=== PATIENT | male | born 2000 | race Caucasian/White ===

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

== ENCOUNTER 2019-08-14 17:47 | Emergency (ER) | payer BC ==
--- NOTE | 2019-08-14 18:17 | PDOC ---
Rapid Medical Evaluation Chief Complaint: Injury Time Seen by Provider: 08/14/19 18:15 Medical Evaluation: Allergies Allergy/AdvReac Type Severity Reaction Status Date / Time No Known Allergies Allergy Unverified 02/21/18 12:34 08/14/19 18:16 I have performed a brief in-person evaluation of this patient. The patient presents with a chief complaint of:puncture wound to thenar eminence of R hand while using knife at home today Pertinent physical exam findings:through and through laceration on exam, exam limited 2/2 pain I have ordered the following:XR, tetanus UTD The patient will proceed to the ED for further evaluation. Discharge Disposition - Diagnosis Hand laceration Qualifiers: Encounter type: initial encounter Foreign body presence: without foreign body Laterality: right Qualified Code(s): S61.411A - Laceration without foreign body of right hand, initial encounter - Referrals - Patient Instructions - Post Discharge Activity
[2019-08-14 18:22] VITALS: TEMP 97.9; BMI 23.7
[2019-08-14] MEDS ORDERED: morphine CARPU-JECT 4 MG/1 ML DISP.SYRIN IVPUSH ONE ×3 (19:30→21:28)
[2019-08-14] MEDS ORDERED: TETANUS AND DIPHTHERIA TOXOID 0.5 ML DISP.SYRIN IM ONE (19:31)
[2019-08-14] MEDS ORDERED: DIPHTH,PERTUSS(ACELL),TET 0.5 ML DISP.SYRIN IM ONE (19:36)
[2019-08-14] MEDS ORDERED: morphine SULFATE 4 MG/ML VIAL ONE ×2 (19:36→20:23)
[2019-08-14] MEDS ORDERED: SODIUM CHLORIDE 1,000 ML IV STA (19:47)
[2019-08-14] MEDS ORDERED: CEFAZOLIN 1 GM/D5W 1 GM/50 ML BAG IVPB ONE (19:47)
--- NOTE | 2019-08-14 19:51 | PDOC ---
History of Present Illness - General Chief Complaint: Injury Stated Complaint: RT HAND LACERATION Time Seen by Provider: 08/14/19 18:15 History Source: Patient Exam Limitations: No Limitations - History of Present Illness Initial Comments: 08/14/19 19:50 19y M with no significant PMH presenting to ED with laceration to the R hand. Pt states he was taking a sticker off a toolbox with a brand new knife when the knife slipped and stabbed him in the R hand. He saw the tip go through the other end. Pt states he has intense pain and does not want to move his fingers due to pain. Last tetanus shot was 1.5y ago. Past History - Past Medical History Allergies/Adverse Reactions: Allergies Allergy/AdvReac Type Severity Reaction Status Date / Time No Known Allergies Allergy Unverified 08/14/19 22:53 Home Medications: Ambulatory Orders Amox-Tr/K Cl [Augmentin - 875Mg Tablet] 1 tab PO BID #14 tablet 08/14/19 Ibuprofen 600 mg PO TID #21 tablet 08/14/19 COPD: No Thyroid Disease: No - Immunization History Immunization Up to Date: Yes - Psycho Social/Smoking Cessation Hx Smoking History: Never smoked Have you smoked in the past 12 months: No Information on smoking cessation initiated: No Hx Alcohol Use: No Drug/Substance Use Hx: No Substance Use Type: None Review of Systems - Review of Systems Musculoskeletal: Yes: See HPI Integumentary: Yes: See HPI Neurological: No: Numbness *Physical Exam - Vital Signs Last Vital Signs Temp Pulse Resp BP Pulse Ox 97.9 F 85 16 108/65 100 08/14/19 18:15 08/14/19 18:15 08/14/19 18:15 08/14/19 18:15 08/14/19 18:15 - Physical Exam General Appearance: Yes: Nourished, Appropriately Dressed, Mild Distress HEENT: positive: EOMIMADONNA Comments:: 08/15/19 08:01 radial pulses 2+ Musculoskeletal: positive: Other (3cm laceration to lateral aspect of R thumb and 1cm laceration at dorsal aspect of R hand near 2nd metacarpal. significant pain. ROM limited 2/2 pain. oozing blood. ) Integumentary: positive: Normal Color, Dry, Warm, Other (hands with dirt. ) Neurologic: positive: weight calculator II-XII NML intact, Fully Oriented, Alert, Normal Mood/ Affect, Normal Response, Motor Strength 5/5 Procedures - Laceration/Wound Repair Right Dorsal Hand 1st digit Wound Length: to 2.5 cm Wound Explored: clean, no foreign body present Wound's Depth, Shape: into muscle Irrigated w/ Saline: Yes Betadine Prep: No Anesthesia: 2% Lidocaine Wound Repaired With: Sutures Suture Size/Type: 4:0 Number of Sutures: 6 ED Treatment Course - Medications Given in the ED: ED Medications Discontinued Medications Generic Name Dose Route Start Last Admin Trade Name Sandee PRN Reason Stop Dose Admin Morphine Sulfate 4 mg 08/14/19 19:30 08/14/19 19:48 Morphine Injection - IVPUSH 08/14/19 19:31 4 mg ONCE ONE Administration Medical Decision Making - Medical Decision Making 08/14/19 19:52 19y M presenting with linear laceration on lateral side of R thumb around 3cm with 1cm puncture wound on dorsal aspect of hand near thumb. not moving hand due to pain. tetanus utd. hands are dirty. no arterial bleed, oozing blood. is able to move other digits. 1st digit rom limited to pain. will give 4mg iv morphine and reassess for movement. xr ordered by rme: no FB, no fractures. will cover with ancef given potential contamination. 08/14/19 20:58 still in pain, given 4 more of morphine. pain controlled. can extend thumb but still in pain. will discuss case with hand at [facility] hand. per hand, can repair large laceration, leave top open. irrigate and antibiotics. laceration reparied, see repair note. toradol given for pain control given augmentin and ibuprofen. will advise pt to return to ed in 1-2 days for wound check. DC home. 08/15/19 08:03 Discharge - Discharge Information Problems reviewed: Yes Clinical Impression/Diagnosis: Hand laceration Qualifiers: Encounter type: initial encounter Foreign body presence: without foreign body Laterality: right Qualified Code(s): S61.411A - Laceration without foreign body of right hand, initial encounter Condition: Improved Disposition: HOME - Admission No - Additional Discharge Information Prescriptions: Amox-Tr/K Cl [Augmentin - 875Mg Tablet] 1 tab PO BID #14 tablet Ibuprofen 600 mg PO TID #21 tablet - Follow up/Referral Referrals: Virgilio Davidson RES [Primary Care Provider] - - Patient Discharge Instructions Patient Printed Discharge Instructions: DI for Laceration Repair Additional Instructions: The laceration was repaired with 6 sutures. Please come back either tomorrow or on Saturday for wound check. A prescription for an antibiotic and pain medication was sent to the pharmacy, take as directed. It is normal for swelling and pain to increase over the next two days. Keep the area clean and dry, use only mild soap and warm water to clean. You will have a scar. Come back to the emergency room if you are unable to move your hand despite pain control, notice oozing, if it appears infected, the swelling doubles, the skin looks red or if any new or concerning symptom develops. Thank you - Post Discharge Activity Work/Back to School Note: Back to Work
[2019-08-14] MEDS ORDERED: CEFAZOLIN 1 GM/D5W 1 GM/50 ML BAG ONE (20:07)
--- NOTE | 2019-08-14 21:02 | PDOC ---
Documentation entered by Jaden Quinteros SCRIBE, acting as scribe for Heidi Balderrama MD. Heidi Balderrama MD: This documentation has been prepared by the Neli oswald Nirvannie, SCRIBE, under my direction and personally reviewed by me in its entirety. I confirm that the documentation accurately reflects all work, treatment, procedures, and medical decision making performed by me. Attending Attestation - Resident Resident Name: MonicaNatividad - ED Attending Attestation I have performed the following: I have examined & evaluated the patient, The case was reviewed & discussed with the resident, I agree w/resident's findings & plan, Exceptions are as noted - HPI HPI: 08/14/19 20:10 The patient is a 19 year old male, with no significant past medical history, who presents to the emergency department with a right hand laceration. As per patient, he was using a new sharp knife to take a sticker off his toolbox at which time it slipped subsequently going through his hand. Patient notes he was able to see the point of the on the other side of his hand at the time of the accident. He endorses significant pain with decreased range of motion of the fingers secondary to pain. His last tetanus shot was approximately a year and half ago. He denies any trauma to the right forearm, left extremity, or head/neck. He denies any syncope. Allergies: NKDA Primary Care Physician: Dr. Virgilio Davidson - Physicial Exam PE: GENERAL: Awake, alert, and fully oriented, in obvious discomfort HEAD: No signs of trauma EXTREMITIES: L hand with through and through laceration to the base of the thumb , exit wound at 2nd metacarpal. No active bleeding. +Pain on movement of the thumb. Ligaments and tendon function intact. No expanding hematoma. Remainder of extremities with normal range of motion, no edema. No clubbing or cyanosis. No cords, erythema, or tenderness NEUROLOGICAL: Cranial nerves II through XII grossly intact. Normal speech, normal gait. Motor and sensation intact SKIN: Warm, dry, normal turgor, no rashes or lesions noted. - Medical Decision Making Pt with through and through laceration to the L hand. With pain control, patient was able to fully range the thumb. No signs of expanding hematoma.
[2019-08-14] MEDS ORDERED: MORPHINE SULFATE 2 MG/ML VIAL ONE (21:54)
[2019-08-14] MEDS ORDERED: LIDOCAINE HCL 2% (50ML VIAL) SQ ONE (22:22)
[2019-08-14] MEDS ORDERED: LIDOCAINE HCL 2% (20ML MULTI-DOSE VIAL) ONE (22:23)
[2019-08-14] MEDS ORDERED: KETOROLAC TROMETHAMINE 15 MG/ML VIAL IVPUSH ONE (23:01)
[2019-08-14] MEDS ORDERED: KETOROLAC TROMETHAMINE 15 MG/ML VIAL ONE (23:05)
[2019-08-14 23:30] VITALS: BP 123/74; PULSE 74
== END 2019-08-14 23:30 | disposition home or self-care (01) ==
LOC: JER 17:47
PROC: 0HQFXZZ Repair Right Hand Skin, External Approach (ICD-10-PCS; principal; 2019-08-14)
PROC: 3E033NZ Introduction of Analgesics, Hypnotics, Sedatives into Peripheral Vein, Percutaneous Approach (ICD-10-PCS; 2019-08-14)
PROC: 3E0333Z Introduction of Anti-inflammatory into Peripheral Vein, Percutaneous Approach (ICD-10-PCS; 2019-08-14)
PROC: 3E0337Z Introduction of Electrolytic and Water Balance Substance into Peripheral Vein, Percutaneous Approach (ICD-10-PCS; 2019-08-14)
DX: S61.011A Laceration without foreign body of right thumb without damage to nail, initial encounter (principal); W26.0XXA Contact with knife, initial encounter; Y93.89 Activity, other specified; Y92.89 Other specified places as the place of occurrence of the external cause
CPT/HCPCS: 73130-TC-RT-FY; 99282-25; J7030

== ENCOUNTER 2019-08-15 16:21 | Emergency (ER) | payer BC ==
[2019-08-15 16:29] VITALS: BP 145/96; PULSE 92; TEMP 98.4; BMI 34.2
--- NOTE | 2019-08-15 18:37 | PDOC ---
Suture Removal/Wound Check HPI - History of Present Illness Chief Complaint: Revisit,Wound Recheck Stated Complaint: EVALUATION Time Seen by Provider: 08/15/19 17:57 History Source: Yes: Patient Exam Limitations: Yes: No Limitations Treated at: [facility] ED - Previous ED Treatment Type of procedure performed on last visit: Yes: Laceration Repair Tetanus Immunization: Yes: Up to Date Antibiotics Prescribed: Yes (not picked up at time of visit) Past History - Travel Traveled outside of the country in the last 30 days: No Close contact w/someone who was outside of country & ill: No - Past Medical History Allergies/Adverse Reactions: Allergies Allergy/AdvReac Type Severity Reaction Status Date / Time No Known Allergies Allergy Unverified 08/14/19 22:53 Home Medications: Ambulatory Orders Amox-Tr/K Cl [Augmentin - 875Mg Tablet] 1 tab PO BID #14 tablet 08/14/19 Ibuprofen 600 mg PO TID #21 tablet 08/14/19 COPD: No Thyroid Disease: No - Immunization History Immunization Up to Date: Yes - Psycho Social/Smoking Cessation Hx Smoking History: Current every day smoker Have you smoked in the past 12 months: No Information on smoking cessation initiated: No Hx Alcohol Use: No Drug/Substance Use Hx: No Substance Use Type: None Suture Removal/Wound Check PE - Physical Exam Laceration/Wound Check Symptoms: reports: Improved, Other Comment (swelling present over the thenar eminence. Soft, able to move the thumb in all directions) Current Severity Level: Mild Location of Laceration/Wound: right: Hand (simple interrupted sutures in place in the thenar eminence.) *Review of Systems - Review of Systems Constitutional: No: Chills, Fever, Weakness Integumentary: Yes: Other (laceration). No: Erythema, Rash *Physical Exam - Vital Signs Last Vital Signs Temp Pulse Resp BP Pulse Ox 98.4 F 92 H 19 145/96 98 08/15/19 16:24 08/15/19 16:24 08/15/19 16:24 08/15/19 16:24 08/15/19 16:24 - Physical Exam General Appearance: Yes: Nourished, Appropriately Dressed. No: Apparent Distress Medical Decision Making - Medical Decision Making 08/15/19 18:34 Patient is 19-year-old male who presents the ER for a wound check to his right hand after having a through and through laceration repaired yesterday in the ER. He has not yet picked up his antibiotics. A/P: Wound check On exam simple interrupted sutures are present in the right thenar eminence. Wound is well approximated, no secondary signs of infection. Wound on the dorsal aspect of the right hand is open, again shows no evidence of infection. Patient is moving his finger in all directions. Thenar eminence is soft. 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 Discharge home with hand follow-up I discussed the physical exam findings, ancillary test results and final diagnoses with the patient. I answered all of the patient's questions. The patient was satisfied with the care received and felt comfortable with the discharge plan and treatment plan. The Patient agrees to follow up with the primary care physician/specialist within 24-72 hours. Return precautions were given. Discharge - Discharge Information Problems reviewed: Yes Clinical Impression/Diagnosis: Visit for wound check Condition: Stable Disposition: HOME - Admission No - Follow up/Referral Referrals: Virgilio Davidson MD [Primary Care Provider] - Avery Martin MD [Staff Physician] - Michael Pacheco MD [Staff Physician] - - Patient Discharge Instructions Patient Printed Discharge Instructions: How to Care for a Surgical Wound- Stitches Additional Instructions: Your wound is healing well. Please keep it clean and dry. Change the dressing every day. Please take the antibiotics as directed. Pick them up as soon as you leave. Please follow-up with a hand specialist within a week. A referral has been provided for you. You can also return to the ER in 7 days to have the stitches removed. Return to the ER sooner if you are unable to move your thumb, if the swelling in the thumb increases, if you have fevers, purulent drainage from the site or if you have any changes in your symptoms. - Post Discharge Activity Work/Back to School Note: Back to Work
== END 2019-08-15 18:40 | disposition home or self-care (01) ==
LOC: JERFT 16:21
DX: Z48.01 Encounter for change or removal of surgical wound dressing (principal)
CPT/HCPCS: 99281-25

== ENCOUNTER 2020-04-16 00:51 | Emergency (ER) | payer BC, OTHER ==
[2020-04-16 00:58] VITALS: BP 0/0; BMI 30.3
--- OUTSIDE RECORDS SUMMARY | 2020-04-16 01:09 | XMS ---
:2000 Author Organization [facility] Care Team Providers Name Role Phone DUKE Foreman Unavailable Unavailable Rosemarin Unavailable Unavailable Rosemarin Unavailable Unavailable Rosemarin Unavailable Unavailable Rosemarin Unavailable Unavailable Rosemarin Unavailable Unavailable Rosemarin Unavailable Unavailable Rosemarin Unavailable Unavailable Rosemarin Unavailable Unavailable Rosemarin Unavailable Unavailable Rosemarin Unavailable Unavailable Rosemarin Unavailable Unavailable Rosemarin Unavailable Unavailable Re-disclosure Warning The records that you are about to access may contain information from federally- assisted alcohol or drug abuse programs. If such information is present, then the following federally mandated warning applies: This information has been disclosed to you from records protected by federal confidentiality rules (42 CFR part 2). The federal rules prohibit you from making any further disclosure of this information unless further disclosure is expressly permitted by the written consent of the person to whom it pertains or as otherwise permitted by 42 CFR part 2. A general authorization for the release of medical or other information is NOT sufficient for this purpose. The Federal rules restrict any use of the information to criminally investigate or prosecute any alcohol or drug abuse patient.The records that you are about to access may contain highly sensitive health information, the redisclosure of which is protected by Article 27-F of the [facility] Public Health law. If you continue you may haveaccess to information: Regarding HIV / AIDS; Provided by facilities licensed or operated by the [facility] Office of Mental Health; or Provided by the [facility] Office for People With Developmental Disabilities. If such information is present, then the following [facility] mandated warning applies: This information has been disclosed to you from confidential records which are protected by state law. State law prohibits you from making any further disclosure of this information without the specific written consent of the person to whom it pertains, or as otherwise permitted by law. Any unauthorized further disclosure in violation of state law may result in a fine or residential sentence or both. A general authorization for the release of medical or other information is NOT sufficient authorization for further disclosure. 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 Status Observation Data S ource(s) Description Advance No completed [facility] Advance No completed [facility] Allergies and Adverse Reactions Type Description Substance Reaction Status Data Source(s ) Miscellaneous allergy latex latex URTICARIA/HIVES [facility] Family History Family Member Family Member Family Member Date of Description Data Source(s) Name Gender Status Status Unknown Unknown Problem MEDENT (Digestive Disease [facility] Nutrition [facility] ) Encounters Encounter Providers Location Date Indications Data Source(s ) Emergency Attender: Lydia 08/13/2019 [facility] [place] [facility] [place] 11:[place]:00 [place] [facility] EST - 08/13/2019 02:11:00 PM EST [place] Patient discharged. Outpatient Attender: Alistair Digestive Disease 07/03/2018 MED ENT (Dig[facility] 01:00:00 PM EST [facility]) Medications Medication Brand Start Product Dose Route Administrative Pharmacy [facility] Indications Reaction Description Data Name Date Form Instructions Instructions Source(s) 200 ACTUAT [place] 08/13/ AEROSOL, 2 ORAL active [facility] Albuterol rol 2019 SPRAY [place] 0.09 Sulfat 01:55: Hospital MG/ACTUAT e Hfa 00 PM Metered 90MCG/ EST Dose Inh* Inhaler [ProAir] Albuterol Sulfate Hfa 90MCG/Inh* Prednisone Predni 05/25/ TABLET 20 mg ORAL active [facility] 20 MG Oral sone 2017 [place] Tablet 04:44: Hospital 00 PM EST Prednisone Predni 05/25/ TABLET 20 mg complet Noelle y [facility] 20 MG Oral sone 2016 ed [place] Tablet (Predn 12:00: Hospital Prednisone isone 00 AM (Prednisone Tablet EST Tablet*) 20 *) 20 Mg Tab Mg Tab Prednisone Predni 05/17/ TABLET 60 mg ORAL complet [facility] 50 MG Oral sone 2013 ed [place] Tablet 10:05: Hospital 00 PM EST Prednisone Predni 05/17/ TABLET 60 mg complet Noelle y [facility] 50 MG Oral sone 2013 ed [place] Tablet (Predn 12:00: Hospital Prednisone isone 00 AM (Prednisone Tablet EST Tablet*) 50 *) 50 Mg Tablet, Mg 60 Mg Oral Tablet , 60 Mg Oral Ondansetron 05/25/ TABLET 4 mg ORAL complet W shyann Hcl 2012 ed [place] 11:12: Hospital 00 PM EST Ondansetron 05/25/ TABLET 4 mg complet Every 8 [facility] Hcl (Ricardo 2012 ed [facility] Odt 12:00: needed for Hospita l Tablet*) 4 00 AM For Nausea Mg Tab, 4 EST Mg Oral Amoxicillin Amoxic TABLET 1 ORAL active Wh ite 250 MG / illin/ {Caps [place] Clavulanate Clavul ule} Hospit al 125 MG Oral anate Tablet Potass Amoxicillin ium /Clavulanat e Potassium Amoxicillin Amoxic TABLET 1 complet Twice A Day [facility] 250 MG / illin/ {Caps ed [place] Clavulanate Clavul ule} Hospit al 125 MG Oral anate Tablet Potass Amoxicillin ium /Clavulanat (Augme e Potassium ntin (Augmentin Tablet Tablets*) s*) 250 Mg-125 250 Mg Tablet Mg-125 Mg Tablet None Ea, 1 UNSPECIF 1 complet Once Wh ite Ea IED {Each ed [place] } Hospital None UNSPECIF 1 complet White IED {Each ed [place] } Hospital Insurance Providers Payer name Policy type / Policy ID Covered Covered republican's Policy Plan Coverage type republican ID relationship to [place] Information p[place]le PPO [id number] FA [id number] BLUE CROSS [id number] FA [id number] PPO SELF PAY SP INSURANCE [place] AdorStyle [id number] Self [id number] Plan [place] Commercial [id number] Self [id number] Plan Problems, Conditions, and Diagnoses Code Display Name Description Problem Type Effective Dates Data Source(s) R07.89 Other chest pain R07.89 Diagnosis 08/13/[address] [facility] 01:20:00 PM EST Hospital Surgeries/Procedures Procedure Description Date Indications Data Source(s) Diagnostic radiography 08/13/2019 [place] of chest, combined 12:00:00 AM Hospital posteroanterior and EST lateral (procedure) X-ray of abdomen, supine X-ray of abdomen, 06/17/2018 [place] and upright views supine and upright 12:00:00 AM Hosp ital views EST X-ray of chest, PA and X-ray of chest, PA 06/17/2018 [place] lateral views and lateral views 12:00:00 AM Hospital EST Results ID Date Data Source [id number] 06/17/2018 01:13:00 AM [facility] Name Value Range Interpretation Code Description Data Stefanie rce(s) Supporting Document(s ) Lipase 35 U/L 12-53 LIPASE [place] [Enzymatic Hospital activity/vo lume] in Serum or Plasma ID Date Data Source [id number] 06/17/2018 01:13:00 AM [facility] Value Range Interpretation Description Data Sup porting Code Source(s) Document(s ) Aspartate 21 U/L 10-48 AST [facility] aminotransferase [place] [Enzymatic Hospital activity/volume] in Serum or Plasma ID Date Data Source [id number] 06/17/2018 01:13:00 AM [facility] Value Range Interpretation Description Data Sup porting Code Source(s) Document(s ) Alanine 29 U/L 10-40 ALANINE [facility] aminotransferase TRANSFERASE [place] [Enzymatic Hospital activity/volume] in Serum or Plasma ID Date Data Source [id number] 06/17/2018 01:13:00 AM [facility] Name Value Range Interpretation Description Data Sup porting Code Source(s) Document(s ) Alkaline 87 U/L 41-147 ALKALINE [facility] phosphatase PHOSPHATASE Hospital [Enzymatic activity/volum e] in Serum or Plasma ID Date Data Source [id number] 06/17/2018 01:13:00 AM [facility] Name Value Range Interpretation Description Data Sup porting Code Source(s) Document(s ) Bilirubin. 0.4 mg/dL 0.3-1.2 TOTAL [facility] total BILIRUBIN Hospital [Mass/volu me] in Serum or Plasma ID Date Data Source [id number] 06/17/2018 01:13:00 AM [facility] Name Value Range Interpretation Description Data Sup porting Code Source(s) Document(s ) Albumin/Gl 1.5 1.0-2.1 ALBUMIN/GLOBULI [facility] obulin N RATIO Hospital [Mass Ratio] in Serum or Plasma ID Date Data Source [id number] 06/17/2018 01:13:00 AM [facility] Value Range Interpretation Description Data Sup porting Code Source(s) Document(s ) Albumin 4.4 g/dL 3.4-4.8 ALBUMIN [facility] [Mass/volum Hospital e] in Serum or Plasma ID Date Data Source [id number] 06/17/2018 01:13:00 AM [facility] Value Range Interpretation Description Data Sup porting Code Source(s) Document(s ) Protein 7.3 g/dL 5.7-8.2 TOTAL PROTEIN [facility] [Mass/volum Hospital e] in Serum or Plasma ID Date Data Source [id number] 06/17/2018 01:13:00 AM [facility] Name Value Range Interpretation Description Data Sup porting Code Source(s) Document(s ) Calcium 9.3 mg/dL 8.3-10.6 CALCIUM [facility] [Mass/volum Hospital e] in Serum or Plasma ID Date Data Source [id number] 06/17/2018 01:13:00 AM EST [facility] Name Value Range Interpretation Description Data Sup porting Code Source(s) Document(s ) Urea 15.1 6.0-20.0 BUN/CREATININE [facility] nitrogen/C RATIO Hospital reatinine [Mass Ratio] in Serum or Plasma ID Date Data Source [id number] 06/17/2018 01:13:00 AM [facility] Name Value Range Interpretation Description Data Sup porting Code Source(s) Document(s ) Creatinine 0.9 0.9-1.3 CREATININE [facility] [Mass/volume] mg/dL Hospital in Serum or Plasma ID Date Data Source [id number] 06/17/2018 01:13:00 AM [facility] Name Value Range Interpretation Description Data Sup porting Code Source(s) Document(s ) Urea 13 mg/dL 6-20 BLOOD UREA [facility] nitrogen NITROGEN Hospital [Mass/volume ] in Serum or Plasma ID Date Data Source [id number] 06/17/2018 01:13:00 AM [facility] Value Range Interpretation Code Description Data Stefanie rce(s) Supporting Document(s ) Anion gap in 12 6-18 ANION GAP [facility] Serum or [facility] Plasma ID Date Data Source [id number] 06/17/2018 01:13:00 AM [facility] Value Range Interpretation Description Data Sup porting Code Source(s) Document(s ) Carbon 24 mmol/L 23-29 CARBON DIOXIDE [facility] dioxide, Hospital total [Moles/vol ume] in Serum or Plasma ID Date Data Source [id number] 06/17/2018 01:13:00 AM [facility] Name Value Range Interpretation Description Data Sup porting Code Source(s) Document(s ) Chloride 104 98-107 CHLORIDE [facility] [Moles/volum mmol/L Hospital e] in Serum or Plasma ID Date Data Source [id number] 06/17/2018 01:13:00 AM [facility] Name Value Range Interpretation Description Data Sup porting Code Source(s) Document(s ) Potassium 3.6 3.8-5.1 Below low normal POTASSIUM [facility] [Moles/volume mmol/L Hospital ] in Serum or Plasma ID Date Data Source [id number] 06/17/2018 01:13:00 AM [facility] Name Value Range Interpretation Description Data Sup porting Code Source(s) Document(s ) Sodium 137 136-145 SODIUM [facility] [Moles/vol mmol/L Hospital ume] in Serum or Plasma ID Date Data Source [id number] 06/17/2018 01:13:00 AM [facility] Name Value Range Interpretation Description Data Sup porting Code Source(s) Document(s ) Glucose 95 mg/dL 74-106 GLUCOSE [facility] [Mass/volum Hospital e] in Serum or Plasma ID Date Data Source [id number] 06/17/2018 01:13:00 AM [facility] Name Value Range Interpretation Description Data Sup porting Code Source(s) Document(s ) Leukocyte NEGATIVE NEG URINE [facility] esterase LEUKOCYTES Hospital [Presence] in Urine by Test strip ID Date Data Source [id number] 06/17/2018 01:13:00 AM [facility] Value Range Interpretation Description Data Sup porting Code Source(s) Document(s ) Nitrite NEGATIVE NEG URINE NITRITES [facility] [Presence] Hospital in Urine by Test strip ID Date Data Source [id number] 06/17/2018 01:13:00 AM [facility] Value Range Interpretation Description Data Sup porting Code Source(s) Document(s ) Erythrocytes NEGATIVE NEG URINE BLOOD [facility] [#/volume] in Hospital Urine by Test strip ID Date Data Source [id number] 06/17/2018 01:13:00 AM [facility] Value Range Interpretation Description Data Sup porting Code Source(s) Document(s ) Bilirubin NEGATIVE NEG URINE BILIRUBIN [facility] .total Hospital [Presence ] in Urine by Test strip ID Date Data Source [id number] 06/17/2018 01:13:00 AM [facility] Value Range Interpretation Description Data Sup porting Code Source(s) Document(s ) Urobilinogen 0.2 0.2-1.0 URINE [facility] [Units/volume] mg/dL UROBILINOGEN [place] in Urine by Hospital Test strip ID Date Data Source [id number] 06/17/2018 01:13:00 AM [facility] Value Range Interpretation Description Data Sup porting Code Source(s) Document(s ) Ketones NEGATIVE NEG URINE KETONES [facility] [Mass/volum Hospital e] in Urine by Test strip ID Date Data Source [id number] 06/17/2018 01:13:00 AM [facility] Value Range Interpretation Description Data Sup porting Code Source(s) Document(s ) Glucose NEGATIVE NEG URINE GLUCOSE [facility] [Mass/volum Hospital e] in Urine by Test strip ID Date Data Source [id number] 06/17/2018 01:13:00 AM [facility] Value Range Interpretation Description Data Sup porting Code Source(s) Document(s ) Protein NEGATIVE NEG URINE PROTEIN [facility] [Presence] Hospital in Urine by Test strip ID Date Data Source [id number] 06/17/2018 01:13:00 AM [facility] Value Range Interpretation Code Description Data Stefanie rce(s) Supporting Document(s ) pH of 6.5 5.0-8.0 URINE PH [facility] Urine by Hospital Test strip ID Date Data Source [id number] 06/17/2018 01:13:00 AM [facility] Value Range Interpretation Description Data Sup porting Code Source(s) Document(s ) Specific 1.009 1.003-1.0 URINE SPECIFIC [facility] gravity of 35 GRAVITY Hospital Urine by Test strip ID Date Data Source [id number] 06/17/2018 01:13:00 AM [facility] Value Range Interpretation Description Data Sup porting Code Source(s) Document(s ) Clarity in Urine CLEAR URINE CLARITY [facility] by Refractometry Hospital automated ID Date Data Source [id number] 06/17/2018 01:13:00 AM [facility] Value Range Interpretation Code Description Data Stefanie rce(s) Supporting Document(s ) Color of YELLOW URINE COLOR [facility] Urine Hospital ID Date Data Source [id number] 06/17/2018 01:13:00 AM [facility] Value Range Interpretation Code Description Data Stefanie rce(s) Supporting Document(s ) 0.0 % 0-0.2 NUCLEATED RBCS [facility] (AUTO DIFF%)DIS Hospital ID Date Data Source [id number] 06/17/2018 01:13:00 AM [facility] Value Range Interpretation Description Data Sup porting Code Source(s) Document(s ) Differential AUTOMATED DIFF TYPE [facility] cell count Hospital method - Blood ID Date Data Source [id number] 06/17/2018 01:13:00 AM [facility] Value Range Interpretation Code Description Data Stefanie rce(s) Supporting Document(s ) 0.02 0-0.3 IMM GRANS (AUTO [facility] 10*3/uL DIFF#) Hospital ID Date Data Source [id number] 06/17/2018 01:13:00 AM [facility] Value Range Interpretation Description Data Sup porting Code Source(s) Document(s ) Basophils 0.04 0.0-0.1 BASOPHILS [facility] [#/volume] 10*3/uL (AUTO DIFF #) Hospital in Blood by Automated count ID Date Data Source [id number] 06/17/2018 01:13:00 AM [facility] Value Range Interpretation Description Data Sup porting Code Source(s) Document(s ) Eosinophils 0.06 0.0-0.6 EOSINOPHILS [facility] [#/volume] in 10*3/uL (AUTO DIFF #) [place] Blood by Hospital Automated count ID Date Data Source [id number] 06/17/2018 01:13:00 AM [facility] Value Range Interpretation Description Data Sup porting Code Source(s) Document(s ) Monocytes 0.58 0.0-1.2 MONOCYTES [facility] [#/volume] 10*3/uL (AUTO DIFF #) Hospital in Blood by Automated count ID Date Data Source [id number] 06/17/2018 01:13:00 AM [facility] Value Range Interpretation Description Data Sup porting Code Source(s) Document(s ) Lymphocytes 3.16 1.2-3.5 LYMPHOCYTES [facility] [#/volume] in 10*3/uL (AUTO DIFF #) [place] Blood by [facility] Automated count ID Date Data Source [id number] 06/17/2018 01:13:00 AM [facility] Value Range Interpretation Description Data Sup porting Code Source(s) Document(s ) Neutrophils 3.55 1.5-6.6 NEUTROPHILS [facility] [#/volume] in 10*3/uL (AUTO DIFF #) [place] Blood by [facility] Automated count ID Date Data Source [id number] 06/17/2018 01:13:00 AM [facility] Value Range Interpretation Description Data Sup porting Code Source(s) Document(s ) Nucleated 0.0 % 0-0.2 NUCLEATED RBCS [facility] erythrocytes/1 (AUTO DIFF%) Hospital 00 leukocytes [Ratio] in Blood by Automated count ID Date Data Source [id number] 06/17/2018 01:13:00 AM [facility] Name Value Range Interpretation Description Data Sup porting Code Source(s) Document(s ) Immature 0.3 % 0-0.5 IMM GRANS (AUTO [facility] granulocytes/1 DIFF%) Hospital 00 leukocytes in Blood by Automated count ID Date Data Source [id number] 06/17/2018 01:13:00 AM [facility] Name Value Range Interpretation Description Data Sup porting Code Source(s) Document(s ) Basophils/100 0.5 % 0-1.0 BASOPHILS (AUTO [place] leukocytes in DIFF %) [facility] Blood by Automated count ID Date Data Source [id number] 06/17/2018 01:13:00 AM [facility] Value Range Interpretation Description Data Sup porting Code Source(s) Document(s ) Eosinophils/10 0.8 % 0-6.0 EOSINOPHILS [facility] 0 leukocytes (AUTO DIFF %) Hospital in Blood by Automated count ID Date Data Source [id number] 06/17/2018 01:13:00 AM [facility] Value Range Interpretation Description Data Sup porting Code Source(s) Document(s ) Monocytes/100 7.8 % 4.0-12.0 MONOCYTES [facility] leukocytes in (AUTO DIFF %) [facility] Blood by Automated count ID Date Data Source [id number] 06/17/2018 01:13:00 AM [facility] Name Value Range Interpretation Description Data Sup porting Code Source(s) Document(s ) Lymphocytes/1 42.6 % 20.0-48. LYMPHOCYTES [facility] 00 leukocytes 0 (AUTO DIFF %) Hospital in Blood by Automated count ID Date Data Source [id number] 06/17/2018 01:13:00 AM [facility] Name Value Range Interpretation Description Data Sup porting Code Source(s) Document(s ) Neutrophils/1 48.0 % 40.0-75. NEUTROPHILS [facility] 00 leukocytes 0 (AUTO DIFF %) Hospital in Blood by Automated count ID Date Data Source [id number] 06/17/2018 01:13:00 AM [facility] Value Range Interpretation Description Data Sup porting Code Source(s) Document(s ) Platelet mean 8.6 fL 9.6-12.8 Below low normal MEAN PLATELET [facility] volume VOLUME Hospital [Entitic volume] in Blood by Automated count ID Date Data Source [id number] 06/17/2018 01:13:00 AM [facility] Value Range Interpretation Description Data Sup porting Code Source(s) Document(s ) Platelets 260 150-400 PLATELET COUNT [facility] [#/volume] 10*3/uL Hospital in Blood by Automated count ID Date Data Source [id number] 06/17/2018 01:13:00 AM [facility] Value Range Interpretation Description Data Sup porting Code Source(s) Document(s ) Erythrocyte 12.1 % 11.5-14. RED CELL [facility] distribution 5 DISTRIBUTION [place] width [Ratio] WIDTH Hospital by Automated count ID Date Data Source [id number] 06/17/2018 01:13:00 AM [facility] Value Range Interpretation Description Data Sup porting Code Source(s) Document(s ) Erythrocyte mean 36.2 31.0-36. Above high MEAN [facility] corpuscular g/dL 0 normal CORPUSCULAR [place] hemoglobin HGB CONCEN Hospital concentration [Mass/volume] by Automated count ID Date Data Source [id number] 06/17/2018 01:13:00 AM [facility] Value Range Interpretation Description Data Sup porting Code Source(s) Document(s ) Erythrocyte 29.3 pg 27.0-34. MEAN [facility] mean 0 CORPUSCULAR [place] corpuscular HEMOGLOBIN Hospital hemoglobin [Entitic mass] by Automated count ID Date Data Source [id number] 06/17/2018 01:13:00 AM [facility] Value Range Interpretation Description Data Sup porting Code Source(s) Document(s ) Erythrocyte 80.9 fL 80.0-96. MEAN [facility] mean 0 CORPUSCULAR [place] corpuscular VOLUME Hospital volume [Entitic volume] by Automated count ID Date Data Source [id number] 06/17/2018 01:13:00 AM [facility] Value Range Interpretation Description Data Sup porting Code Source(s) Document(s ) Hematocrit 46.1 % 42.0-50.0 HEMATOCRIT [facility] [Volume Hospital Fraction] of Blood by Automated count ID Date Data Source [id number] 06/17/2018 01:13:00 AM [facility] Value Range Interpretation Description Data Sup porting Code Source(s) Document(s ) Hemoglobin 16.7 13.6-17. HEMOGLOBIN [facility] [Mass/volume] g/dL 0 Hospital in Blood ID Date Data Source [id number] 06/17/2018 01:13:00 AM [facility] Value Range Interpretation Description Data Sup porting Code Source(s) Document(s ) Erythrocytes 5.70 4.50-5.9 RED BLOOD [facility] [#/volume] in 10*6/uL 0 CELL COUNT [place] Blood by Hospital Automated count ID Date Data Source [id number] 06/17/2018 01:13:00 AM [facility] Value Range Interpretation Description Data Sup porting Code Source(s) Document(s ) Leukocytes 7.4 4.0-10.0 WHITE BLOOD [facility] [#/volume] in 10*3/uL CELL COUNT [facility] Blood by Automated count Procedure Social History Code Duration Value Status Description Data Source(s ) Smoking Unknown if ever completed Unknown if ever [facility] [place] smoked smoked Hospital Denies Tobacco completed Denies Tobacco Use [facility] ([facility]) ETOH Use Denies alcohol completed Denies alcohol use [facility] ([facility]) Smoking Never smoked completed Never smoked tobacco [facility] [place] tobacco (finding) (finding) [facility] Vital Signs ID Date Data Source UNK Name Value Range Interpretation Code Description Data Source(s) Respiratory rate 13 /min 13 /min [facility] ([facility]) Heart rate 71 /min 71 /min [facility] ([facility]) Diastolic blood 70 mm[Hg] 70 mm[Hg] [facility] pressure ([facility]) Systolic blood 120 mm[Hg] 120 mm[Hg] [facility] pressure ([facility]) Body mass index 29.6 kg/m2 29.6 kg/m2 [facility] (BMI) [Ratio] ([facility]) Body weight 218.00 218.00 [lb_av] [facility] [lb_av] ([facility]) Body height 72 [in_i] 72 [in_i] [facility] ([facility]) 6'0" Patient Treatment Plan of Care Planned Activity Planned Date Details Description Data Source (s) Prednisone 20 MG Oral 05/25/2017 12:00:00 [facility] Tablet AM EST Prednisone 50 MG Oral 05/17/2014 12:00:00 [facility] Tablet AM EST Ondansetron Hcl (Zofran 05/25/2013 12:00:00 [facility] Odt Tablet*) 4 Mg Tab, 4 AM EST Mg Oral None Ea, 1 Ea [facility] Amoxicillin 250 MG / [facility] Clavulanate 125 MG Oral Tablet
--- NOTE | 2020-04-16 01:16 | PDOC ---
History of Present Illness - General Chief Complaint: Pain Stated Complaint: FEELS ABD BULGING Time Seen by Provider: 04/16/20 00:54 History Source: Patient Exam Limitations: No Limitations - History of Present Illness Initial Comments: 04/16/20 01:14 This is a 19-year-old male who comes in complaining of he lifted something cavity and now there is a bulging area in his upper abdominal area. Patient is concerned that he may have a hernia. Patient tried to get an appointment with the primary care doctor but was told there was no appointments available for several weeks so he was concerned and came in otherwise patient denies any pain. Patient denies any bulge at this time patient denies any other discomfort or any other complaints. Allergies: as per nursing notes Past Medical History: none Social history: Lives with family. No smoking. No alcohol. No illicit drugs. Surgical history: None General: No fevers or chills, no weakness, no weight loss HEENT: No change in vision. No sore throat,. No ear pain CardioVascular: no chest discomfort. No shortness of breath Respiratory:No cough, or wheezing. Gastrointestinal: no nausea, vomiting, diarrhea or constipation, No rectal bleeding Genitourinary: No dysuria, hematuria, or frequency Musculoskeletal: No joint or muscle pain or swelling Neurologic: No headache, vertigo, dizziness or loss of consciousness Psychiatric: nor depression Skin: No rashes or easy bruising Endocrine: no increased thirst or abnormal weight change Allergic: no skin or latex allergy All other systems reviewed and normal GENERAL: The patient is awake, alert, and fully oriented, in no acute distress. HEENT:Head is normal with no signs of trauma. Eyes: Pupils equal, round and reactive to light, Ears, and Throat are normal. Neck is supple. No Lymphadenopathy. Abdomen: There is no palpable hernia there is no tenderness bowel sounds are normal and normal abdominal exam EXTREMITIES:atraumatic, Normal range of motion, no edema. NEUROLOGICAL: Normal speech, normal gait. PSYCH: Normal mood, normal affect. SKIN: Warm, Dry, normal turgor, no rashes or lesions noted. Assessment and plan: This is a 19-year-old male with possible ventral wall hernia however it is not palpable or visible at this time. Patient was reassured. Patient was told to wear some support across that area if he is lifting anything heavy and get an appointment with a primary care doctor to follow-up at some point in the future. Past History - Medical History Allergies/Adverse Reactions: Allergies Allergy/AdvReac Type Severity Reaction Status Date / Time No Known Allergies Allergy Unverified 08/14/19 22:53 Home Medications: Ambulatory Orders NK [No Known Home Medication] 04/16/20 COPD: No Thyroid Disease: No - Immunization History Immunization Up to Date: Yes - Psycho-Social/Smoking History Smoking History: Never smoked Have you smoked in the past 12 months: No *Physical Exam - Vital Signs Last Vital Signs Temp Pulse Resp BP Pulse Ox 0/0 L 04/16/20 00:54 Discharge - Discharge Information Problems reviewed: Yes Clinical Impression/Diagnosis: Reducible bulge of abdominal wall Condition: Stable Disposition: HOME - Admission No - Follow up/Referral - Patient Discharge Instructions Additional Instructions: Return to the emergency department immediately with ANY new, persistent or worsening symptoms. Continue any medications as previously prescribed by your physician. You should follow up with your primary doctor as soon as possible regarding today's emergency department visit. . Please make sure your doctor reviews the results of your emergency evaluation. Thank you for coming to the Emergency Department today for your care. It was a pleasure to see you today. Please note that your evaluation is INCOMPLETE until you follow-up with your doctor. - Post Discharge Activity
== END 2020-04-16 01:20 | disposition home or self-care (01) ==
LOC: FER 00:51
DX: K46.0 Unspecified abdominal hernia with obstruction, without gangrene (principal)
CPT/HCPCS: 99282-25

== ENCOUNTER 2020-10-28 08:47 | Emergency (ER) | payer OTHER, BC ==
[2020-10-28 08:53] VITALS: BP 140/87; PULSE 88; TEMP 98.2; BMI 30.3
== END 2020-10-28 09:38 | disposition home or self-care (01) ==
LOC: JERFT 08:47
DX: T15.01XA Foreign body in cornea, right eye, initial encounter (principal); T15.02XA Foreign body in cornea, left eye, initial encounter
CPT/HCPCS: 99283-25

== ENCOUNTER 2024-01-25 23:47 | Emergency (ER) | payer BC ==
[2024-01-25 23:51] VITALS: BP 144/95; PULSE 100; RESP 16; TEMP 98.2; BMI 29.0
== END 2024-01-26 02:37 | disposition home or self-care (01) ==
LOC: JER 23:47
DX: R06.02 Shortness of breath (principal)
CPT/HCPCS: 71046-TC-FY; 85379; 93005; 93010; 99285-25